=== PATIENT | male | born 1990 | race American Indian/Alaskan Native ===

== ENCOUNTER 2019-11-09 23:23 | Emergency (ER) | payer SELFPAY ==
[2019-11-09] MEDS ORDERED: Acetaminophen/oxyCODONE 325-5 MG Tab PO PRN (23:29)
--- NOTE | 2019-11-09 23:36 | EDM.PDOC ---
ED HPI GENERAL MEDICAL PROBLEM - General Chief Complaint: Trauma Stated Complaint: FALL Time Seen by Provider: 11/09/19 23:29 Source of Information: Reports: Patient History Limitations: Reports: No Limitations - History of Present Illness INITIAL COMMENTS - FREE TEXT/NARRATIVE: Patient states that he was working on his own [place] fell 2 stories to gravel. States he fell directly onto his right shoulder. Denies any head trauma, head or neck pain. Denies any chest or abdominal trauma. He has been walking and bearing weight with no pain in his lower extremities or pelvis. Trauma alert was called after the patient arrived by private auto. Onset: Today Onset Date: 11/09/19 Onset Time: 23:00 Duration: Getting Worse Location: Reports: Upper Extremity, Right. Denies: Head, Neck, Abdomen, Back, Pelvis Quality: Reports: Sharp Improves with: Reports: None Worsens with: Reports: Movement Context: Reports: Trauma - Related Data Allergies Allergy/AdvReac Type Severity Reaction Status Date / Time No Known Allergies Allergy Verified 11/09/19 23:29 Home Meds: Home Meds NK [No Known Home Meds] 11/09/19 [History] Review of Systems - Review of Systems Review Of Systems: See Below Constitutional: Reports: No Symptoms Eyes: Reports: No Symptoms Ears: Reports: No Symptoms Nose: Reports: No Symptoms Mouth/Throat: Reports: No Symptoms Respiratory: Reports: No Symptoms. Denies: Shortness of Breath, Wheezing Cardiovascular: Reports: No Symptoms, Chest Pain GI/Abdominal: Denies: Abdominal Pain, Nausea, Vomiting Musculoskeletal: Reports: Joint Pain (R shoulder) Skin: Reports: No Symptoms. Denies: Bruising, Rash Neurological: Reports: No Symptoms. Denies: Confusion, Headache, Paresthesia, Trouble Speaking, Difficulty Walking Psychiatric: Reports: No Symptoms ED EXAM, GENERAL - Physical Exam Exam: See Below Exam Limited By: No Limitations General Appearance: Alert, WD/WN, Moderate Distress Ears: Normal External Exam Nose: Normal Inspection Throat/Mouth: Normal Inspection Head: Atraumatic, Normocephalic. No: Facial Swelling Neck: Normal Inspection, Supple, Non-Tender, Other (Patient had no head trauma or loss of consciousness. No alcohol intake. No complaints of neck pain. He fulfills Nexus criteria for not imaging his neck.). No: Tender Midline Respiratory/Chest: No Respiratory Distress Cardiovascular: Normal Peripheral Pulses, Regular Rate, Rhythm Peripheral Pulses: 1+: Radial (L), Radial (R) Back Exam: Normal Inspection, Full Range of Motion Extremities: Arm Pain (Exquisite pain right shoulder. There is prominence of the acromion. No other deformity in the shoulder) Neurological: Alert, Oriented Course - Vital Signs Text/Narrative:: Initially given oral Percocet. The patient has not suffered any head trauma and has not had any nausea or vomiting so start by treating his pain with oral medication. Right shoulder x-ray shows acromioclavicular separation, no fracture. Chest x-ray shows no rib fracture or pneumothorax. No evidence of pulmonary contusion. Last Recorded V/S: Last Vital Signs Temp 36.6 C 11/09/19 23:23 Pulse 103 H 11/09/19 23:23 Resp 16 11/09/19 23:23 BP 154/95 H 11/09/19 23:23 Pulse Ox 97 11/09/19 23:23 - Orders/Labs/Meds Orders: Active Orders 24 hr Category Date Time Status Chest 1V Frontal [CR] Stat Exams 11/09/19 23:30 Taken Shoulder Comp Rt [CR] Stat Exams 11/09/19 23:30 Taken Meds: Medications Discontinued Medications Generic Name Dose Route Start Last Admin Trade Name Freq PRN Reason Stop Dose Admin Oxycodone/Acetaminophen 1 tab 11/09/19 23:29 11/09/19 23:33 Percocet 325-5 Mg PO 1 tab ONETIME PRN Administration Pain (moderate 4-6) Departure - Departure Time of Disposition: 23:57 Disposition: Home, Self-Care 01 Clinical Impression: Separation of acromioclavicular joint due to injury, Fall from roof as cause of accidental injury - Discharge Information Instructions: Acromioclavicular Separation, Fall Prevention in the Home, Adult Referrals: PCP,None [Primary Care Provider] - Forms: ED Department Discharge Additional Instructions: Do not use your right arm. Work note provided. Follow up with orthopedist as soon as possible. Okay to utilize Percocet 4 times a day. In between you can use ibuprofen 600 mg 3 times a day. Apply ice to your shoulder is much as possible during the day Sepsis Event Note (ED) - Focused Exam Vital Signs: Vital Signs Temp Pulse Resp BP Pulse Ox 11/09/19 23:23 36.6 C 103 H 16 154/95 H 97 - My Orders Last 24 Hours: My Active Orders 11/09/19 23:30 Chest 1V Frontal [CR] Stat Shoulder Comp Rt [CR] Stat - Assessment/Plan Last 24 Hours: My Active Orders 11/09/19 23:30 Chest 1V Frontal [CR] Stat Shoulder Comp Rt [CR] Stat
--- NOTE | 2019-11-10 09:06 | CR ---
CHEST: Portable 11/09/2019 at 2336 CLINICAL HISTORY:Trauma COMPARISON:None FINDINGS: The heart size, pulmonary vascularity and hilar structures are normal. No infiltrate effusion or pneumothorax is seen. IMPRESSION: No acute cardiopulmonary process Shoulder Comp Rt CLINICAL HISTORY: Trauma FINDINGS: There is a before meals separation with upward displacement of the clavicle. IMPRESSION: Acromioclavicular joint separation No fracture.
== END 2019-11-10 00:15 | disposition home or self-care (01) ==
LOC: JP.ED 23:23
DX: S43.101A Unspecified dislocation of right acromioclavicular joint, initial encounter (principal); W13.2XXA Fall from, out of or through roof, initial encounter
CPT/HCPCS: 71045; 71045-26; 73030-26-RT; 73030-RT; 99283; 99283-25; A9270-GY